=== PATIENT | female | born 1990 | race Caucasian/White ===

== ENCOUNTER 2016-12-05 06:28 | Emergency (ER) | payer MEDICAID, OTHER ==
[~2016-12-05] VITALS: Ht 165.1 cm; Wt 77.0 kg
[2016-12-05 07:42] VITALS: BP 138/86
== END 2016-12-05 09:11 | disposition home or self-care (01) ==
LOC: ER 09:09
DX: F43.22 Adjustment disorder with anxiety (principal); F32.9 Major depressive disorder, single episode, unspecified; F12.10 Cannabis abuse, uncomplicated; Z88.0 Allergy status to penicillin
CPT/HCPCS: 81025; 99284; Z7610

== ENCOUNTER 2019-02-01 19:56 | Emergency (ER) | payer MEDICAID, OTHER ==
[~2019-02-01] VITALS: Ht 162.6 cm; Wt 74.0 kg
[2019-02-01] MEDS ORDERED: KETOROLAC 30MG/ML VIAL IM ONE (22:45)
[2019-02-01 23:31] VITALS: BP 135/79
== END 2019-02-01 23:31 | disposition home or self-care (01) ==
LOC: ER 19:56
DX: S90.02XA Contusion of left ankle, initial encounter (principal); F41.9 Anxiety disorder, unspecified; W01.0XXA Fall on same level from slipping, tripping and stumbling without subsequent striking against object, initial encounter; Y93.89 Activity, other specified; Y92.89 Other specified places as the place of occurrence of the external cause; Y99.8 Other external cause status
CPT/HCPCS: 73610; 81025; 96372; 99283; J1885